=== PATIENT | female | born 1975 | race Two or more races ===

== ENCOUNTER 2023-01-18 05:58 | Day surgery (SDC) | payer OTHER ==
[~2023-01-18] VITALS: Ht 165.1 cm; Wt 80.3 kg
== END 2023-01-18 21:35 | disposition home or self-care (01) ==
LOC: CIR.AMB 05:58
PROVIDERS: ATTEND Surgery
DX: C50.412 Malignant neoplasm of upper-outer quadrant of left female breast (principal); D48.61 Neoplasm of uncertain behavior of right breast; N62 Hypertrophy of breast; N64.81 Ptosis of breast; R59.0 Localized enlarged lymph nodes; Z20.822 Contact with and (suspected) exposure to COVID-19